=== PATIENT | female | born 1930 | race Hispanic/Latino ===

== ENCOUNTER 2017-04-05 11:07 | Emergency (ER) | payer MEDICARE ==
[2017-04-05] MEDS ORDERED: ZOFRAN IV ONE (11:42)
[2017-04-05] MEDS ORDERED: SUBLIMAZE IV ONE ×3 (11:42→15:30)
--- NOTE | 2017-04-05 11:47 | Emergency Department Report ---
HPI - General Chief Complaint: Pain General Time Seen by Provider: 04/05/17 11:31 - HPI HPI: Room 8 The patient is a 86 year-old female presenting with a chief complaint of "hurting all over." The patient states she is "hurting all over" for the past 4 days. Patient denies any preceding trauma. Patient has had episodes in the past has been attributed to arthritis. Patient seen in a pain management clinic. Patient also complains of pain in the right flank and lower abdomen. Patient admits to nausea but denies vomiting, diarrhea or fever. Patient describes pain as "it just hurts." Patient denies vaginal discharge Location: "All over" Duration: 4 days Quality: "It just hurts" Severity: 07/19 Modifying factors: [see above] Context: [see above] Mode of transportation: [not driving] ED Past Medical Hx - Past Medical History Previous Medical History?: Yes Hx Hypertension: Yes (On metoprolol) Hx GERD: Yes Hx Arthritis: Yes - Surgical History Past Surgical History?: Yes Hx Breast Surgery: Yes (biopsy) Additional Surgical History: BREAST BIOPSIES. EAR PATCHES, Esophageal surgery x 2 - Family History Family history: no significant - Social History Smoking Status: Never Smoker Substance Use Type: Prescribed - Medications Home Medications: Home Medications Medication Instructions Recorded Confirmed Last Taken Type ALPRAZolam [Alprazolam] 1 tab PO PRN 04/25/14 04/27/14 04/26/14 History Benazepril/Hydrochlorothiazide 1 tab PO DAILY 04/25/14 04/27/14 04/27/14 History [Benazepril-Hctz 20-25 mg] Metoprolol [Lopressor TAB] 1 tab PO DAILY 04/25/14 04/27/14 04/27/14 History Mirtazapine 1 tab PO QHS 04/25/14 04/25/14 Unknown History Omeprazole 1 cap PO DAILY 04/25/14 04/27/14 04/26/14 History Tramadol HCl 1 tab PO PRN 04/25/14 04/27/14 04/26/14 History HYDROcodone/APAP 5-325 [[place] 1 each PO Q6HR PRN #20 tablet 09/29/14 Unknown Rx 5/325] HYDROcodone/APAP 5-325 [[place] 1 - 2 each PO Q6HR PRN #14 tablet 04/05/17 Unknown Rx 5/325] ED Review of Systems ROS: Stated complaint: BODYACHES/BACK PAIN Other details as noted in HPI Comment: All other systems reviewed and negative Constitutional: denies: chills, fever Eyes: denies: eye pain, eye discharge, vision change ENT: denies: ear pain, throat pain Respiratory: denies: cough, shortness of breath, wheezing Cardiovascular: denies: chest pain, palpitations Endocrine: no symptoms reported Gastrointestinal: abdominal pain, nausea. denies: vomiting, diarrhea Genitourinary: denies: urgency, dysuria, discharge Musculoskeletal: arthralgia, myalgia. denies: back pain, joint swelling Skin: denies: rash, lesions Neurological: denies: headache, weakness, paresthesias Psychiatric: denies: anxiety, depression Hematological/Lymphatic: denies: easy bleeding, easy bruising Physical Exam - Physical Exam Vital Signs: Vital Signs 04/05/17 04/05/17 11:16 11:34 Temperature 97.9 F Pulse Rate 77 Respiratory 18 18 Rate Blood Pressure 175/84 O2 Sat by Pulse 96 Oximetry Physical Exam: GENERAL: The patient is well-developed well-nourished female lying on stretcher not appearing to be in acute distress. [] HEENT: Normocephalic. Atraumatic. Extraocular motions are intact. Patient has moist mucous membranes. NECK: Supple. Trachea midline CHEST/LUNGS: Clear to auscultation. There is no respiratory distress noted. HEART/CARDIOVASCULAR: Regular. There is no tachycardia. There is no gallop rub or murmur. ABDOMEN: Abdomen is soft, with mild discomfort to palpation in the epigastric region there is no rebound or guarding. Patient has normal bowel sounds. There is no abdominal distention. SKIN: There is no rash. There is no edema. There is no diaphoresis. NEURO: The patient is awake, alert, and oriented. The patient is cooperative. The patient has normal speech MUSCULOSKELETAL: There is no CVA tenderness. There is no evidence of acute injury. ED Course Vital Signs 04/05/17 04/05/17 11:16 11:34 Temperature 97.9 F Pulse Rate 77 Respiratory 18 18 Rate Blood Pressure 175/84 O2 Sat by Pulse 96 Oximetry - Reevaluation(s) Reevaluation #1: 04/05/17 13:25 CT results discussed with patient and family. Patient denies vaginal discharge Reevaluation #2: 04/05/17 16:00 CT and pelvic ultrasound findings discussed with patient and family member. The importance of prompt follow-up with a nicking machine operator was explained. Patient and family member verbalized understanding. It is explained merlos is abnormal for the patient to have a thickened endometrium as well as a complex ovarian cyst in her postmenopausal phase. The importance of further evaluation to rule out cancer or other significant etiologies was explained. The patient is being given a referral to a nicking machine operator for further evaluation ED Medical Decision Making - Lab Data Result diagrams: 04/05/17 11:33 04/05/17 11:33 Laboratory Tests 04/05/17 04/05/17 04/05/17 11:33 11:33 11:33 WBC 9.3 RBC 4.93 Hgb 14.6 H Hct 43.9 H MCV 89 MCH 30 MCHC 33 RDW 13.0 L Plt Count 248 Lymph % (Auto) 31.7 [place] % (Auto) 8.6 H Eos % (Auto) 3.6 Baso % (Auto) 1.2 Lymph # 2.9 [place] # 0.8 Eos # 0.3 Baso # 0.1 Seg Neutrophils % 54.9 Seg Neutrophils # 5.1 Sodium 140 Potassium 4.2 Chloride 101.6 Carbon Dioxide 23 Anion Gap 20 BUN 13 Creatinine 1.2 Estimated GFR 42 BUN/Creatinine Ratio 10.83 Glucose 101 H Calcium 9.3 Total Bilirubin 0.30 AST 16 ALT 13 Alkaline Phosphatase 68 Total Protein 7.3 Albumin 4.5 Albumin/Globulin Ratio 1.6 Amylase Lipase 83 H Urine Color Straw Urine Turbidity Clear Urine pH 5.0 Ur Specific [place] 1.005 Urine Protein <15 mg/dl Urine Glucose (UA) Neg Urine Ketones Neg Urine Blood Neg Urine Nitrite Neg Urine Bilirubin Neg Urine Urobilinogen < 2.0 Ur Leukocyte Esterase Neg Urine WBC (Auto) 1.0 Urine RBC (Auto) 3.0 04/05/17 11:33 WBC RBC Hgb Hct MCV MCH MCHC RDW Plt Count Lymph % (Auto) [place] % (Auto) Eos % (Auto) Baso % (Auto) Lymph # [place] # Eos # Baso # Seg Neutrophils % Seg Neutrophils # Sodium Potassium Chloride Carbon Dioxide Anion Gap BUN Creatinine Estimated GFR BUN/Creatinine Ratio Glucose Calcium Total Bilirubin AST ALT Alkaline Phosphatase Total Protein Albumin Albumin/Globulin Ratio Amylase 162 H Lipase Urine Color Urine Turbidity Urine pH Ur Specific [place] Urine Protein Urine Glucose (UA) Urine Ketones Urine Blood Urine Nitrite Urine Bilirubin Urine Urobilinogen Ur Leukocyte Esterase Urine WBC (Auto) Urine RBC (Auto) - Radiology Data Radiology results: report reviewed (CT abdomen and pelvis, pelvic ultrasound), image reviewed (CT abdomen and pelvis, pelvic ultrasound) CT abdomen and pelvis (read by radiologist)-mildly dilated right fallopian tube may represent salpingitis. Clinical correlation is advised. Normal adrenals, kidney parenchyma and bladder. Normal liver, spleen, pancreas and gallbladder. Pelvic ultrasound (read by radiologist)-prominent right fallopian tube with no hydrosalpinx noted. Thickened endometrial stripe with multiple cystic areas. This is atypical for postmenopausal patient. 1 cm mildly complex cyst in the right ovary which is also atypical for postmenopausal patient. Further workup recommended. - Differential Diagnosis arthralgia, enteritis, pyelonephritis, UTI Critical care attestation.: If time is entered above; I have spent that time in minutes in the direct care of this critically ill patient, excluding procedure time. ED Disposition Clinical Impression: Abnormal pelvic ultrasound, Right ovarian cyst, Thickened endometrium, Right flank pain Disposition: DISCHARGED TO HOME OR SELFCARE Is pt being admited?: No Does the pt Need Aspirin: No Condition: Stable Instructions: Acute Abdominal Pain (ED) Additional Instructions: Return to the emergency department immediately should you develop worsening symptoms, fever, inability to tolerate food or liquid or any other concerns. Prescriptions: HYDROcodone/APAP 5-325 [[place] 5/325] 1 - 2 each PO Q6HR PRN #14 tablet PRN Reason: Pain Referrals: PRIMARY CARE, [Referring] - 3-5 Days MARVIN VIVAS MD [Staff Physician] - [facility] (Dr. Vivas is an RAILROAD SIGNAL OPERATOR. It is extremely important that you follow-up with her for further evaluation of your abnormal pelvic ultrasound findings.) Time of Disposition: 16:00
[2017-04-05 12:05] LABS: Albumin 4.5 g/dL (3.9-5); Albumin/Globulin Ratio 1.6 %; BUN/Creatinine Ratio 10.83; Bilirubin,Total 0.3 mg/dL (0.1-1.2); Calcium 9.3 mg/dL (8.4-10.2); Chloride 101.6 mmol/L (98-107); Potassium 4.2 mmol/L (3.6-5.0); Total Protein 7.3 g/dL (6.3-8.2)
[2017-04-05 12:16] LABS: Basophils % (Auto) 1.2 % (0.0-1.8); Eosinophils % (Auto) 3.6 % (0.0-4.3); Hematocrit 43.9 % (30.3-42.9); Hemoglobin 14.6 gm/dl (10.1-14.3); Mean Corpuscular HGB Conc 33 % (30-34); Mean Corpuscular Hemoglobin 30 pg (28-32); Mean Corpuscular Volume 89 fl (79-97); Platelet Count 248 K/mm3 (140-440); Red Blood Count 4.93 M/mm3 (3.65-5.03); White Blood Count 9.3 K/mm3 (4.5-11.0)
[2017-04-05] MEDS ORDERED: NACL ONE (12:29)
[2017-04-05 12:45] LABS: Bilirubin,Urine NEG (Negative); Blood,Urine NEG (Negative); Ketones,Urine NEG (Negative); Leukocyte Esterase,Urine NEG (Negative); Nitrite,Urine NEG (Negative); Protein,Urine <15 mg/dL mg/dL (Negative); Urobilinogen,Urine < 2.0 mg/dL (<2.0)
--- NOTE | 2017-04-05 13:04 | Cat Scan Report ---
CT scan of abdomen and pelvis with IV contrast: Findings: Mild emphysematous changes of the lung bases. No acute lung changes. No pleural or pericardial effusion. Normal liver spleen pancreas and gallbladder. Normal adrenals kidney parenchyma and bladder. No free intraperitoneal fluid or air. No evidence of adenopathy. Atherosclerotic abdominal aorta without aneurysm. Small calcified fecaliths are noted within the appendicular lumen. The wall appears normal. No distention of lumen. No periappendiceal inflammation. Diverticulosis of sigmoid colon without evidence of diverticulitis. Gaseous colon with small volume stool in colon. The right fallopian tube appears mildly dilated compared to the left. There is however no mass identified in the region. Impression: Mildly dilated right fallopian tube may represent salpingitis. Clinical correlation is advised.
--- NOTE | 2017-04-05 15:33 | Ultrasound Report ---
FINAL REPORT EXAM: US PELVIC COMPLETE HISTORY: right flank pain. Abnl right fallopian tube on ct TECHNIQUE: Transabdominal and transvaginal pelvic ultrasound. PRIORS: None currently available. FINDINGS: Uterus: 5.1 x 2.7 x 4.0 cm. Within normal limits. Anteverted. Homogeneous. No distinct lesions. Prominent right fallopian tube but no hydrosalpinx noted. Endometrium: 11.7 mm echogenic endometrium is abnormally thickened for a postmenopausal patient. Multiple cystic areas also present measuring 6, 5, 4, and 4 mm. Right ovary: 2.5 x 1.0 x 1.7 cm right ovary. 1 cm mildly complex cystic lesion. Left Ovary: 1.4 x 0.9 x 1.3 cm. Within normal limits. Adnexal: Unremarkable. No free fluid. IMPRESSION: Prominent right fallopian tube but no hydrosalpinx noted. Thickened endometrial stripe with multiple cystic areas. This is atypical for a postmenopausal patient. 1 cm mildly complex cyst in the right ovary which is also atypical for a postmenopausal patient. Further workup recommended.
[2017-04-05 16:27] VITALS: BP 172/62
== END 2017-04-05 16:28 | disposition home or self-care (01) ==
LOC: ED 11:07
DX: N83.201 Unspecified ovarian cyst, right side (principal); I10 Essential (primary) hypertension; K21.9 Gastro-esophageal reflux disease without esophagitis; M19.90 Unspecified osteoarthritis, unspecified site; Z98.890 Other specified postprocedural states
CPT/HCPCS: 36415; 74177; 76830; 76856; 80053; 81001; 82150; 83690; 85025; 96374; 96375; 96376; 99284; J2405; J3010; Q9967